=== PATIENT | male | born 1975 ===

== ENCOUNTER 2016-10-01 00:36 | Emergency (ER) | payer MEDICARE, SELFPAY ==
[2016-10-01 00:59] VITALS: BP 116/71; PULSE 75; RESP 15; TEMP 97.8; O2SAT 98
--- NOTE | 2016-10-01 01:33 | ED PDOC ---
HPI: Eye Injury/Pain Time Seen by Provider: 10/01/16 01:01 Chief Complaint (Nursing): Eye Problem Chief Complaint (Provider): left eye irritation History Per: Patient History/Exam Limitations: no limitations Onset/Duration Of Symptoms: Hrs Current Symptoms Are (Timing): Still Present Associated Symptoms: Pain Additional History Per: Patient Additional Complaint(s): 41 y/o male presents for eval of left eye irritation x 3 hours. Patient states he went to remove his contacts tonight, which were very dry, and feels he took a metal leaf layer of his eye. He notes pain when blinking. Denies fever, headache, vision changes, discharge from eye. Patient states he has been wearing these particular contacts on-and-off x 3 months, which are advised to be discarded after 2 weeks use. Patient also noted pain/redness to chin x 1 week, started as ingrown hair but area has since grown in size despite warm compresses. Denies fever, drainage from site. Past Medical History Reviewed: Historical Data, Nursing Documentation, Vital Signs Vital Signs: Last Vital Signs Temp 97.8 F 10/01/16 00:54 Pulse 75 10/01/16 00:54 Resp 15 10/01/16 00:54 BP 116/71 10/01/16 00:54 Pulse Ox 98 10/01/16 00:54 - Medical History PMH: Back Problems (Multiple nerve injuries), Deep Vein Thrombosis, Post Traumatic Stress Disorder, Pulmonary Embolism ([place] 2012), Chronic Pain (Takes multiple narcotics for pain at home) - Surgical History Surgical History: Tonsillectomy - Family History Family History: States: Unknown Family Hx - Home Medications Home Medications: Ambulatory Orders Medication Instructions Recorded Alprazolam [Xanax] 2 mg PO QAM 12/22/13 Escitalopram [Lexapro] 15 mg PO DAILY 12/22/13 Esomeprazole Magnesium [Nexium] 40 mg PO DAILY 12/22/13 Topiramate [Topamax] 50 mg PO TID 12/22/13 Alfuzosin HCl [Uroxatral] 10 mg PO HS 06/20/15 Alprazolam [Xanax] 4 mg PO HS 06/20/15 Lidocaine 5% [Lidoderm] 1 patch TD Q48H 06/20/15 Multivit-Minerals/FA/Lycopene 1 tab PO DAILY 03/03/16 [One-A-Day Men's Tablet] Tadalafil [Cialis] 5 mg PO DAILY 06/20/15 Warfarin [Coumadin] 2.5 mg PO HS 06/20/15 Zolpidem Tartrate [Zolpidem 12.5 mg PO HS PRN 06/20/15 Tartrate ER] oxyCODONE [oxyCODONE Immediate 30 mg PO TID 06/20/15 Release Tab] tiZANidine [Zanaflex] 2 mg PO TID 06/20/15 Oxycodone HCl/Acetaminophen 1 tab PO QID PRN #12 tab 06/21/15 [Percocet 325 mg-5 mg] Acetaminophen/Butalbital/Caf 1 tab PO TID PRN #20 tab 06/28/15 [Fioricet] Oxymetazoline HCl [Deandre-Synephrine 1 appl NS BID #1 bot 06/28/15 12 Hour 15 ml] Clindamycin [Cleocin] 300 mg PO QID #28 cap 10/01/16 Ofloxacin Ophth 0.3% [Ocuflox 2 drop OS QID #1 bottle 10/01/16 Ophth 0.3%] - Allergies Allergies/Adverse Reactions: Allergies Allergy/AdvReac Type Severity Reaction Status Date / Time No Known Allergies Allergy Verified 10/01/16 00:54 Review of Systems ROS Statement: Except As Marked, All Systems Reviewed And Found Negative Eyes: Positive for: Redness (left) Physical Exam - Reviewed Nursing Documentation Reviewed: Yes Vital Signs Reviewed: Yes - Physical Exam Appears: Positive for: Well, Non-toxic, No Acute Distress Head Exam: Positive for: ATRAUMATIC, NORMAL INSPECTION, NORMOCEPHALIC Skin: Positive for: Normal Color, Rash (nondraining lesion right lower chin with + surrounding erythema. No drainage, fluctuance noted) Eye Exam: Positive for: EOMI, PERRL, Conjunctival injection (left). Negative for: Periorbital swelling, Periorbital tenderness ENT: Positive for: Normal ENT Inspection Cardiovascular/Chest: Positive for: Regular Rate, Rhythm Respiratory: Positive for: Normal Breath Sounds - ECG O2 Sat by Pulse Oximetry: 98 - Progress ED Course And Treament: left eye anesthesized with 1 drop tetracaine; fluro stain reveals no uptake. Patient educated on findings, likely mucosal irritation from contact removal; advised to throw away contacts and follow up optho ayush. rx ocuflox, clindamycin provided. Advised warm compresses to right lower chin. Follow up PMD 2-3 days. Return to ED for worsening/concerning symptoms. Disposition - Clinical Impression Clinical Impression: Contact lens overwear, Cellulitis of chin, Corneal irritation of left eye - Patient ED Disposition Is Patient to be Admitted: No Counseled Patient/Family Regarding: Studies Performed, Diagnosis, Need For Followup, Rx Given - Disposition Referrals: Rodriguez Jose MD [Staff Provider] - Disposition: Routine/Home Disposition Time: 02:30 Condition: STABLE Prescriptions: Clindamycin [Cleocin] 300 mg PO QID #28 cap Ofloxacin Ophth 0.3% [Ocuflox Ophth 0.3%] 2 drop OS QID #1 bottle Instructions: Cellulitis (ED)
== END 2016-10-01 02:34 | disposition home or self-care (01) ==
LOC: H.ER 00:36
DX: L03.211 Cellulitis of face (principal); H57.12 Ocular pain, left eye

== ENCOUNTER 2017-06-15 18:11 | Emergency (ER) | payer MEDICARE, SELFPAY ==
[2017-06-15 18:51] VITALS: BP 116/73; PULSE 76; RESP 18; O2SAT 98
--- NOTE | 2017-06-15 20:01 | ED PDOC ---
HPI: Skin/Bite Injury Time Seen by Provider: 06/15/17 19:06 Chief Complaint (Nursing): Abnormal Skin Integrity Chief Complaint (Provider): Infection, left abdomen History Per: Patient History/Exam Limitations: no limitations Onset/Duration Of Symptoms: Days Current Symptoms Are (Timing): Still Present Quality Of Symptoms: Painful Severity: Moderate Pain Scale Rating Of: 6 Past Medical History Reviewed: Historical Data, Nursing Documentation, Vital Signs Vital Signs: Last Vital Signs Temp 98.4 F 06/15/17 18:48 Pulse 76 06/15/17 18:48 Resp 18 06/15/17 18:48 BP 116/73 06/15/17 18:48 Pulse Ox 98 06/15/17 18:48 - Medical History PMH: Back Problems (Multiple nerve injuries), Deep Vein Thrombosis, Post Traumatic Stress Disorder, Pulmonary Embolism ([place] 2012), Chronic Pain (Takes multiple narcotics for pain at home) - Surgical History Surgical History: Tonsillectomy - Family History Family History: States: Unknown Family Hx - Living Arrangements Living Arrangements: With Family - Social History Current smoker - smoking cessation education provided: No - Home Medications Home Medications: Ambulatory Orders Medication Instructions Recorded Alprazolam [Xanax] 2 mg PO QAM 12/22/13 Escitalopram [Lexapro] 15 mg PO DAILY 12/22/13 Esomeprazole Magnesium [Nexium] 40 mg PO DAILY 12/22/13 Topiramate [Topamax] 50 mg PO TID 12/22/13 Alfuzosin HCl [Uroxatral] 10 mg PO HS 06/20/15 Alprazolam [Xanax] 4 mg PO HS 06/20/15 Lidocaine 5% [Lidoderm] 1 patch TD Q48H 06/20/15 Multivit-Min/Folic/Vit K/Lycop 1 tab PO DAILY 06/20/15 [One-A-Day Men's Tablet] Tadalafil [Cialis] 5 mg PO DAILY 06/20/15 Warfarin [Coumadin] 2.5 mg PO HS 06/20/15 Zolpidem Tartrate [Zolpidem 12.5 mg PO HS PRN 06/20/15 Tartrate ER] oxyCODONE [oxyCODONE Immediate 30 mg PO TID 06/20/15 Release Tab] tiZANidine [Zanaflex] 2 mg PO TID 06/20/15 Oxycodone HCl/Acetaminophen 1 tab PO QID PRN #12 tab 06/21/15 [Percocet 325 mg-5 mg] Acetaminophen/Butalbital/Caf 1 tab PO TID PRN #20 tab 06/28/15 [Fioricet] Oxymetazoline HCl [Deandre-Synephrine 1 appl NS BID #1 bot 06/28/15 12 Hour 15 ml] Clindamycin [Cleocin] 300 mg PO QID #28 cap 10/01/16 Ofloxacin Ophth 0.3% [Ocuflox 2 drop OS QID #1 bottle 10/01/16 Ophth 0.3%] Clindamycin [Cleocin] 300 mg PO QID #40 cap 06/15/17 Ibuprofen [Motrin Tab] 800 mg PO Q6H PRN #20 tab 06/15/17 - Allergies Allergies/Adverse Reactions: Allergies Allergy/AdvReac Type Severity Reaction Status Date / Time No Known Allergies Allergy Verified 06/15/17 18:48 Review of Systems ROS Statement: Except As Marked, All Systems Reviewed And Found Negative Constitutional: Negative for: Fever, Chills Skin: Positive for: Other Physical Exam - Reviewed Nursing Documentation Reviewed: Yes Vital Signs Reviewed: Yes - Physical Exam Appears: Positive for: Well, Non-toxic, No Acute Distress Head Exam: Positive for: ATRAUMATIC, NORMAL INSPECTION, NORMOCEPHALIC Skin: Positive for: Warm. Negative for: Normal Color (Abscess - Left abdomen with pus draining ) Eye Exam: Positive for: Normal appearance ENT: Positive for: Normal ENT Inspection Neck: Positive for: Normal, Painless ROM Cardiovascular/Chest: Positive for: Regular Rate, Rhythm Respiratory: Positive for: CNT, Normal Breath Sounds Gastrointestinal/Abdominal: Positive for: Normal Exam, Bowel Sounds, Soft Back: Positive for: Normal Inspection Extremity: Positive for: Normal ROM Neurologic/Psych: Positive for: Alert, Oriented - ECG O2 Sat by Pulse Oximetry: 98 Medical Decision Making Medical Decision Making: Discussed antibiotics and warm compresses. PT taking oxycodone for chronic back pain. Disposition - Clinical Impression Clinical Impression: Abscess - Patient ED Disposition Is Patient to be Admitted: No Counseled Patient/Family Regarding: Diagnosis, Need For Followup, Rx Given - Disposition Disposition: Routine/Home Disposition Time: 19:58 Condition: GOOD Prescriptions: Clindamycin [Cleocin] 300 mg PO QID #40 cap Ibuprofen [Motrin Tab] 800 mg PO Q6H PRN #20 tab PRN Reason: Pain Instructions: Skin Abscess Forms: [facility] (Mongolian)
[2017-06-15 20:20] VITALS: TEMP 98.3
== END 2017-06-15 20:18 | disposition home or self-care (01) ==
LOC: H.ER 18:11
DX: L02.211 Cutaneous abscess of abdominal wall (principal); Z86.718 Personal history of other venous thrombosis and embolism; M54.9 Dorsalgia, unspecified; G89.29 Other chronic pain; Z86.711 Personal history of pulmonary embolism; Z79.01 Long term (current) use of anticoagulants; F43.10 Post-traumatic stress disorder, unspecified

== ENCOUNTER 2018-01-14 14:04 | Emergency (ER) | payer MEDICARE, OTHER ==
[2018-01-14 14:19] VITALS: TEMP 98.6
--- NOTE | 2018-01-14 15:25 | ED PDOC ---
HPI: Back Time Seen by Provider: 01/14/18 14:34 Chief Complaint (Nursing): Back Pain Chief Complaint (Provider): Right sided low back pain, right sided abdominal pain Past Medical History Vital Signs: Last Vital Signs Temp 98.6 F 01/14/18 14:16 Pulse 98 H 01/14/18 14:16 Resp 19 01/14/18 14:16 BP 122/74 01/14/18 14:16 Pulse Ox 100 01/14/18 14:16 - Medical History PMH: Back Problems (Multiple nerve injuries), Deep Vein Thrombosis, Post Traumatic Stress Disorder, Pulmonary Embolism ([place] 2013), Chronic Pain (Takes multiple narcotics for pain at home) - Surgical History Surgical History: Tonsillectomy - Family History Family History: States: Unknown Family Hx - Home Medications Home Medications: Ambulatory Orders Medication Instructions Recorded Alprazolam [Xanax] 2 mg PO QAM 12/22/13 Escitalopram [Lexapro] 15 mg PO DAILY 12/22/13 Esomeprazole Magnesium [Nexium] 40 mg PO DAILY 12/22/13 Topiramate [Topamax] 50 mg PO TID 12/22/13 Alfuzosin HCl [Uroxatral] 10 mg PO HS 06/20/15 Alprazolam [Xanax] 4 mg PO HS 06/20/15 Lidocaine 5% [Lidoderm] 1 patch TD Q48H 06/20/15 Multivit-Min/Folic/Vit K/Lycop 1 tab PO DAILY 06/20/15 [One-A-Day Men's Tablet] Tadalafil [Cialis] 5 mg PO DAILY 06/20/15 Warfarin [Coumadin] 2.5 mg PO HS 06/20/15 Zolpidem Tartrate [Zolpidem 12.5 mg PO HS PRN 06/20/15 Tartrate ER] oxyCODONE [oxyCODONE Immediate 30 mg PO TID 06/20/15 Release Tab] tiZANidine [Zanaflex] 2 mg PO TID 06/20/15 Oxycodone HCl/Acetaminophen 1 tab PO QID PRN #12 tab 06/21/15 [Percocet 325 mg-5 mg] Acetaminophen/Butalbital/Caf 1 tab PO TID PRN #20 tab 06/28/15 [Fioricet] Oxymetazoline HCl [Deandre-Synephrine 1 appl NS BID #1 bot 06/28/15 12 Hour 15 ml] Clindamycin [Cleocin] 300 mg PO QID #28 cap 10/01/16 Ofloxacin Ophth 0.3% [Ocuflox 2 drop OS QID #1 bottle 10/01/16 Ophth 0.3%] Clindamycin [Cleocin] 300 mg PO QID #40 cap 06/15/17 Ibuprofen [Motrin Tab] 800 mg PO Q6H PRN #20 tab 06/15/17 traMADol [Ultram] 50 mg PO Q6H PRN #15 tab 01/14/18 - Allergies Allergies/Adverse Reactions: Allergies Allergy/AdvReac Type Severity Reaction Status Date / Time No Known Allergies Allergy Verified 06/15/17 18:48 - Laboratory Results Result Diagrams: 01/14/18 15:29 01/14/18 15:29 - ECG O2 Sat by Pulse Oximetry: 100 Medical Decision Making Medical Decision Makin - Pt talking on phone in room, NAD 1550 - Pt sleeping, NAD Disposition - Clinical Impression Clinical Impression: Low back pain - Patient ED Disposition Is Patient to be Admitted: No Counseled Patient/Family Regarding: Diagnosis, Need For Followup, Rx Given - Disposition Disposition: Routine/Home Disposition Time: 17:54 Condition: GOOD Prescriptions: traMADol [Ultram] 50 mg PO Q6H PRN #15 tab PRN Reason: Pain Instructions: Low Back Pain in Adults Forms: [facility] (Arabic)
[2018-01-14 15:33] LABS: BASO # 0.1 K/uL (0.0-0.2); EOS # 0.1 K/uL (0.0-0.7); EOS % 1.8 % (0.0-4.0); LYMPH # 2.6 K/uL (1.0-4.3); LYMPH % 31.1 % (20.0-40.0); MEAN CELL VOLUME 88.8 fl (80.0-94.0); MEAN CORPUSCULAR HEMOGLOBIN 30.8 pg (27.0-31.0); MEAN CORPUSCULAR HGB CONC 34.6 g/dL (33.0-37.0); MEAN PLATELET VOLUME 6.9 fl (7.2-11.7); MONO # 0.5 K/uL (0.0-0.8); MONO % 6.1 % (0.0-10.0); NRBC % 0.1 % (0.0-0.0); RBC 4.88 Mil/uL (4.40-5.90); RED CELL DISTRIBUTION WIDTH 13.3 % (11.5-14.5); WHITE BLOOD COUNT 8.4 K/uL (4.8-10.8)
[2018-01-14 15:36] LABS: URINE BILIRUBIN NEGATIVE (NEGATIVE); URINE BLOOD NEGATIVE (NEGATIVE); URINE CLARITY CLEAR (Clear); URINE COLOR YELLOW (YELLOW); URINE GLUCOSE (UA) NEG (Normal); URINE LEUKOCYTE ESTERASE NEG Leu/uL (Negative); URINE PROTEIN NEGATIVE (NEGATIVE); URINE UROBILINOGEN 0.2-1.0 mg/dL (0.2-1.0)
[2018-01-14 15:47] LABS: ALB/GLOB RATIO 1.3 (1.0-2.1); ALBUMIN 4.3 g/dL (3.5-5.0); ALT/SGPT 35 U/L (21-72); AST/SGOT 37 U/L (17-59); BLOOD UREA NITROGEN 16 mg/dl (9-20); CALCIUM 9.4 mg/dL (8.4-10.2); GFR NON-AFRICAN AMERICAN > 60; LIPASE 68 U/L (23-300)
[2018-01-14] MEDS ORDERED: Iohexol 300 100 ML IJ ONE (16:17)
[2018-01-14] MEDS ORDERED: Sodium Chloride 0.9% 50 ML IV ONE (16:17)
--- NOTE | 2018-01-14 17:06 | CT ---
Date of service: 01/14/2018 PROCEDURE: CT Abdomen and Pelvis with contrast HISTORY: back pain, right sided pain COMPARISON: CT scan of the abdomen pelvis dated 01/31/2013 TECHNIQUE: Contrast dose: 95 mL Omnipaque 300 Radiation dose: Total exam DLP = 322.3 mGy-cm. This CT exam was performed using one or more of the following dose reduction techniques: Automated exposure control, adjustment of the mA and/or kV according to patient size, and/or use of iterative reconstruction technique. FINDINGS: LOWER THORAX: Unremarkable. LIVER: Hepatic steatosis. No gross lesion or ductal dilatation. GALLBLADDER AND BILE DUCTS: Unremarkable. PANCREAS: Unremarkable. No gross lesion or ductal dilatation. SPLEEN: Unremarkable. ADRENALS: Unremarkable. No mass. KIDNEYS AND URETERS: Unremarkable. No hydronephrosis. No solid mass. VASCULATURE: Unremarkable. No aortic aneurysm. BOWEL: Unremarkable. No obstruction. No gross mural thickening. APPENDIX: Normal appendix. PERITONEUM: Unremarkable. No free fluid. No free air. LYMPH NODES: Unremarkable. No enlarged lymph nodes. BLADDER: Unremarkable. REPRODUCTIVE: Unremarkable. BONES: No acute fracture. OTHER FINDINGS: Stimulator device in the right gluteal soft tissues with leads entering the spinal canal at T11-12 and extending superiorly to T8-9. IMPRESSION: No acute abdominal pelvic pathology. Stable findings as above.
[2018-01-14 18:28] VITALS: BP 117/67; PULSE 71; RESP 18; O2SAT 99
== END 2018-01-14 18:35 | disposition home or self-care (01) ==
LOC: H.ER 14:04
DX: M54.5 Low back pain (principal); R10.9 Unspecified abdominal pain; G89.29 Other chronic pain; Z79.01 Long term (current) use of anticoagulants; Z86.711 Personal history of pulmonary embolism; Z86.718 Personal history of other venous thrombosis and embolism; F43.10 Post-traumatic stress disorder, unspecified
CPT/HCPCS: 74177; 80053; 81003; 83690; 85025; 87086; 96374; 99283; J2270; Q9967

== ENCOUNTER 2018-04-29 05:48 | Day surgery (SDC) | payer OTHER ==
[2018-04-29 07:21] VITALS: BMI 25.8
[2018-04-29] MEDS ORDERED: Propofol 10 mg/ml Inj (20 ML) ONE ×2 (07:50→07:58)
[2018-04-29] MEDS ORDERED: Midazolam 5 MG/ML ONE (07:51)
[2018-04-29] MEDS ORDERED: Lidocaine 1% 5ml Abboject ONE (07:51)
[2018-04-29] MEDS ORDERED: Lactated Ringer's 1,000 ML IV SCH (09:30)
[2018-04-29] MEDS ORDERED: oxyCODONE 10 mg ER Tab (oxyCONTIN) PO PRN (11:15)
[2018-04-29 12:31] VITALS: BP 100/60; PULSE 82; RESP 12; TEMP 98; O2SAT 96
--- NOTE | 2018-04-29 16:12 | MRI ---
Date of service: 04/29/2018 PROCEDURE: MR THORACIC SPINE WITHOUT CONTRAST HISTORY: chronic back pain COMPARISON: None available. TECHNIQUE: Multiecho multiplanar sequences were performed through the thoracic spine without the use of intravenous contrast. FINDINGS: ALIGNMENT: Normal thoracic spinal alignment. Normal thoracic kyphosis. VERTEBRA: Vertebral body height are preserved. MARROW: Marrow signal unremarkable. PARASPINAL SOFT TISSUES: Postoperative scarring is identified status post resection of the T 11 spinous process with a partial laminectomy not excluded here. There may be no laminectomy in fact. Long TR signal may indicate edema at this location and clinical correlation is advised as to the timing of prior surgery or trauma here potentially. CORD: Unremarkable thoracic cord. No volume loss, signal abnormality or syrinx. DISCS: No disc herniation, spinal canal stenosis, or neuroforaminal narrowing. OTHER FINDINGS: None. IMPRESSION: Unremarkable central canal and neural foramina throughout with postop changes suggested at the T11 spinous process which appears to been resected. Questionable edema/fibrosis here. Clinically correlate further. Normal thoracic curvature. No fracture or spondylolisthesis identified. No disc herniation throughout.
--- NOTE | 2018-04-29 16:14 | MRI ---
Date of service: 04/29/2018 PROCEDURE: MR LUMBAR SPINE WITHOUT CONTRAST HISTORY: chronic back pain COMPARISON: None available. TECHNIQUE: Multiecho multiplanar sequences were performed through the lumbar spine without the use of intravenous contrast. FINDINGS: Normal lumbar lordosis. Vertebral body heights are preserved. Marrow signal unremarkable. Conus medullaris unremarkable at the level of L1-2 disc interspace. Paraspinal soft tissues are unremarkable. Question of small right renal cyst under 1 cm size. T12-L1: No disc herniation, spinal canal stenosis or neural foraminal narrowing. L1-2: No disc herniation, spinal canal stenosis or neural foraminal narrowing. L2-3: No disc herniation, spinal canal stenosis or neural foraminal narrowing. L3-4: No disc herniation, spinal canal stenosis or neural foraminal narrowing. L4-5: No disc herniation, spinal canal stenosis or neural foraminal narrowing. Limited circumferential disc bulging without stenosis resulting. Mild facet joint degenerative change. L5-S1: No disc herniation, spinal canal stenosis or neural foraminal narrowing. Mild facet joint degenerative change. OTHER FINDINGS: None. IMPRESSION: Unremarkable non contrast enhanced MRI of the lumbar spine.
== END 2018-04-29 13:55 | disposition home or self-care (01) ==
LOC: H.MRI 05:48 → EDSTATUS 07:30 → H.MRI 13:55
PROVIDERS: ATTEND Anesthesiology
DX: M54.9 Dorsalgia, unspecified (principal); J45.909 Unspecified asthma, uncomplicated
CPT/HCPCS: 72146; 72148; J2250; J2704; J3010; J7120